=== PATIENT | female | born 1975 | race Caucasian/White ===

== ENCOUNTER 2018-11-19 15:04 | Emergency (ER) | payer BC ==
[2018-11-19] MEDS ORDERED: ACETAMINOPHEN 325 MG TABLET ONE (15:53)
[2018-11-19] MEDS ORDERED: IBUPROFEN 400 MG TAB ONE (15:53)
--- NOTE | 2018-11-19 16:26 | ER ---
Nurse's Notes [facility] Name: Carmelita Guzman Age: 43 yrs Sex: Female : 1975 Arrival Date: 11/19/2018 Time: 15:06 Bed 11 Private MD: Diagnosis: Pain in left knee Presentation: 11/19 15:10 Presenting complaint: Patient states: "I fell about 5 months ago and hurt me knee and I aa5 went to urgent care and they said they thought it was my meniscus but today my knee gave out and it's hurting". Pt c/o left knee pain. Transition of care: patient was not received from another setting of care. Onset of symptoms was November 19, 2018. Risk Assessment: Do you want to hurt yourself or someone else? Patient reports no desire to harm self or others. Initial Sepsis Screen: Does the patient meet any 2 criteria? No. Patient's initial sepsis screen is negative. Does the patient have a suspected source of infection? No. Patient's initial sepsis screen is negative. Care prior to arrival: None. 15:10 Method Of Arrival: Ambulatory [facility] 15:10 Acuity: LEIA 4 aa5 MANAGER HI: 15:11 LMP 11/10/2018 aa5 Historical: - Allergies: 15:11 No Known Allergies; aa5 - PMHx: 15:11 None; aa5 - PSHx: 15:11 ; aa5 - Immunization history:: Flu vaccine is not up to date. - Social history:: Smoking status: Patient uses tobacco products, smokes one pack cigarettes per day. - Ebola Screening: : No symptoms or risks identified at this time. Screenin:48 Abuse screen: Denies threats or abuse. Denies injuries from another. Nutritional iw screening: No deficits noted. Tuberculosis screening: No symptoms or risk factors identified. Fall Risk None identified. Assessment: 15:48 General: Appears in no apparent distress. Behavior is calm, cooperative. Pain: iw Complains of pain in left knee. Neuro: Level of Consciousness is awake, alert, obeys commands, Moves all extremities. Cardiovascular: Patient's skin is warm and dry. Respiratory: Respiratory effort is even, unlabored, Respiratory pattern is regular. Derm: Skin is intact, is healthy with good turgor. 16:02 Reassessment: radiology staff reports they are on the way to do xray. iw Vital Signs: 15:11 BP 104 / 56; Pulse 82; Resp 16 S; Temp 99.0(TE); Pulse Ox 99% on R/A; Weight 65.77 kg aa5 (R); Height 5 ft. 4 in. (162.56 cm) (R); Pain 9/10; 15:11 Body Mass Index 24.89 (65.77 kg, 162.56 cm) aa5 ED Course: 15:06 Patient arrived in ED. aa5 15:10 Arm band placed on. aa5 15:11 Triage completed. aa5 15:19 Jose Eduardo Piedra PA is PHCP. cp 15:19 Jordin Damon MD is Attending Physician. cp 15:35 Arabella Dela Cruz RN is Primary Nurse. iw 15:48 No provider procedures requiring assistance completed. Patient did not have IV access iw during this emergency room visit. 16:00 Patient has correct armband on for positive identification. iw 16:25 Asa Alvarado MD is Referral Physician. cp 16:27 XRAY Knee LEFT 3 view In Process Unspecified. EDMS Administered Medications: 15:43 Drug: Tylenol 650 mg Route: PO; iw 16:15 Follow up: Response: No adverse reaction; Pain is decreased iw 15:43 Drug: Ibuprofen 800 mg Route: PO; iw 16:30 Follow up: Response: No adverse reaction; Pain is decreased iw Outcome: 16:26 Discharge ordered by MD. cp 16:44 Discharged to home ambulatory, with crutches, with family. iw 16:44 Condition: good 16:44 Discharge instructions given to patient, family, Instructed on discharge instructions, follow up and referral plans. medication usage, Demonstrated understanding of instructions, follow-up care, medications, Prescriptions given X 2. 16:45 Patient left the ED. iw Signatures: Dispatcher [employer] EDMS Arabella Dela Cruz RN RN iw Shanelle Oro RN RN aa5 Jose Eduardo Piedra PA PA cp
--- NOTE | 2018-11-19 16:26 | EDPHYS ---
Physician Documentation [facility] Name: Carmelita Guzman Age: 43 yrs Sex: Female : 1975 Arrival Date: 11/19/2018 Time: 15:06 Bed 11 Private MD: ED Physician Jordin Damon HPI: 11/19 15:27 This 43 yrs old Female presents to ER via Ambulatory with complaints of Knee cp Pain. 15:27 The patient presents with pain. cp 15:27 The complaints affect the left knee. Context: fall 5 months ago. Patient reports cp increased pain today and knee "locked up". Patient reports intermittent weakness of left knee with it giving out. Has not had xrays taken and has not seen an orthopedist. 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 - Social history:: Smoking status: Patient uses tobacco products, smokes one pack cigarettes per day. - Ebola Screening: : No symptoms or risks identified at this time. ROS: 15:35 Constitutional: Negative for body aches, chills, fever, poor PO intake. cp 15:35 Eyes: Negative for injury, pain, redness, and discharge. cp 15:35 Cardiovascular: Negative for chest pain. 15:35 Respiratory: Negative for cough, shortness of breath. 15:35 Abdomen/GI: Negative for abdominal pain, nausea, vomiting, and diarrhea. 15:35 Back: Negative for pain at rest, pain with movement. 15:35 MS/extremity: Positive for pain, tenderness, of the left knee. 15:35 All other systems are negative. Exam: 15:40 Constitutional: The patient appears in no acute distress, alert, awake, well developed, cp well nourished. 15:40 Head/Face: Normocephalic, atraumatic. cp 15:40 Eyes: Periorbital structures: appear normal, Conjunctiva: normal, Lids and lashes: appear normal, bilaterally. 15:40 ENT: External ear(s): are unremarkable, Nose: is normal, Mouth: is normal. 15:40 Chest/axilla: Inspection: normal. 15:40 Cardiovascular: Rate: normal. 15:40 Respiratory: the patient does not display signs of respiratory distress, Respirations: normal, no use of accessory muscles, no retractions, no splinting, no tachypnea, labored breathing, is not present. 15:40 Abdomen/GI: Inspection: abdomen appears normal. 15:40 Musculoskeletal/extremity: Joints: All joints are normal except the left knee displays pain at rest, painful range of motion, tenderness. 15:40 Skin: cellulitis, is not appreciated, no rash present. Vital Signs: 15:11 BP 104 / 56; Pulse 82; Resp 16 S; Temp 99.0(TE); Pulse Ox 99% on R/A; Weight 65.77 kg aa5 (R); Height 5 ft. 4 in. (162.56 cm) (R); Pain 9/10; 15:11 Body Mass Index 24.89 (65.77 kg, 162.56 cm) aa5 Procedures: 16:40 Splinting: Splint applied to left knee using knee immobilizer, applied by nurse. cp Examined by me, post splint application: neurovascular intact. 16:40 Crutch training provided to patient and/or family. Return demonstration given. cp MDM: 15:26 Patient medically screened. cp 15:45 Differential diagnosis: closed fracture, ligament injury, meniscus tear. cp 16:23 ED course: Xrays of left knee negative for fracture. cp 16:25 Data reviewed: vital signs, nurses notes, radiologic studies, plain films. cp 16:25 Test interpretation: by ED physician or midlevel provider: plain radiologic studies. cp Counseling: I had a detailed discussion with the patient and/or guardian regarding: the historical points, exam findings, and any diagnostic results supporting the discharge/admit diagnosis, radiology results, the need for outpatient follow up, for definitive care, a orthopedic surgeon, to return to the emergency department if symptoms worsen or persist or if there are any questions or concerns that arise at home. Response to treatment: the patient's symptoms have mildly improved after treatment, and as a result, I will discharge patient. 11/19 15:26 Order name: XRAY Knee LEFT 3 view cp 11/19 16:25 Order name: Knee Immobilizer; Complete Time: 16:44 cp 11/19 16:25 Order name: Crutches; Complete Time: 16:44 cp Administered Medications: 15:43 Drug: Tylenol 650 mg Route: PO; iw 16:15 Follow up: Response: No adverse reaction; Pain is decreased iw 15:43 Drug: Ibuprofen 800 mg Route: PO; iw 16:30 Follow up: Response: No adverse reaction; Pain is decreased iw Disposition: 16:46 Co-signature as Attending Physician, Jordin Damon MD. ma2 Disposition: 11/19/18 16:26 Discharged to Home. Impression: Pain in left knee. - Condition is Stable. - Discharge Instructions: Knee Immobilizer, Knee Pain. - Prescriptions for Ibuprofen 800 mg Oral Tablet - take 1 tablet by ORAL route every 8 hours As needed take with food; 30 tablet. Cyclobenzaprine 10 mg Oral Tablet - take 1 tablet by ORAL route every 8 hours As needed no driving while taking medication; 15 tablet. - Medication Reconciliation Form, Thank You Letter, Antibiotic Education, Prescription Opioid Use form. - Follow up: Asa Alvarado MD; When: 2 - 3 days; Reason: Recheck today's complaints. - Problem is an ongoing problem. - Symptoms have improved. Signatures: Dispatcher [employer] EDMS Arabella Dela Cruz RN RN iw Shanelle Oro RN RN aa5 Jose Eduardo Piedra PA PA cp Jordin Damon MD MD ma2 Corrections: (The following items were deleted from the chart) 16:45 16:26 11/19/2018 16:26 Discharged to Home. Impression: Pain in left knee. Condition is iw Stable. Forms are Medication Reconciliation Form, Thank You Letter, Antibiotic Education, Prescription Opioid Use. Follow up: Dr. Asa Alvarado; When: 2 - 3 days; Reason: Recheck today's complaints. Problem is an ongoing problem. Symptoms have improved. cp
--- NOTE | 2018-11-19 16:36 | RAD REPORT ---
EXAM DESCRIPTION: RAD - Knee Left 3 View - 11/19/2018 4:27 pm CLINICAL HISTORY: Left knee pain FINDINGS: No fracture or dislocation is seen. A 17 millimeters area of sclerosis is present within the proximal tibia appear. It likely is benign. Follow up x-ray in 3 months is recommended to assess stability
== END 2018-11-19 16:45 | disposition home or self-care (01) ==
LOC: ER 15:04
DX: M25.562 Pain in left knee (principal); F17.210 Nicotine dependence, cigarettes, uncomplicated